=== PATIENT | female | born 1975 | race Hispanic/Latino ===

== ENCOUNTER → 2021-06-03 | Outpatient (CLI) | payer OTHER | END | disposition home or self-care (01) | LOC: RAH 14:34 | PROVIDERS: ATTEND Internal Medicine | DX: E04.2 Nontoxic multinodular goiter (principal) | CPT/HCPCS: 76536 ==

== ENCOUNTER 2021-09-07 17:29 | Emergency (ER) | payer OTHER ==
[~2021-09-07] VITALS: Ht 165.1 cm; Wt 106.6 kg
[2021-09-07] MEDS ORDERED: ONDANSETRON 4MG INJ IVP ONE (18:00)
[2021-09-07] MEDS ORDERED: 0.9%NACL 1000ML 1,000 ML IV ONE (18:00)
[2021-09-07 18:28] LABS: CREATININE 0.9 mg/dL (0.5-1.5); POTASSIUM 3.4 mmol/L (3.5-5.1)
[2021-09-07 18:33] LABS: ALBUMIN 3.9 g/dL (3.5-5.0); BILIRUBIN,TOTAL 0.4 mg/dL (0.2-1.0); TOTAL PROTEIN, SERUM 8.2 g/dL (6.0-8.3)
[2021-09-07 18:35] LABS: BASOPHILS % (AUTO) 0.4 % (0.0-5.0); EOSINOPHILS % (AUTO) 0.5 % (0.0-8.0); HEMATOCRIT 40.9 % (36-48); LYMPHOCYTES % (AUTO) 9.3 % (21.0-51.0); MEAN CORPUSCULAR HEMOGLOBIN 27.9 pg (27.0-33.0); MEAN CORPUSCULAR HGB CONC 32.5 g/dL (32.0-36.0); MEAN CORPUSCULAR VOLUME 85.9 fL (79-99); MONOCYTES % (AUTO) 3.8 % (3.0-13.0); NEUTROPHILS % (AUTO) 85.6 % (40.0-77.0); PLATELET COUNT (AUTO) 308 K/uL (130-400); RED BLOOD CELL COUNT(AUTO) 4.76 MIL/uL (4.00-5.50); RED CELL DISTRIBUTION WIDTH 13.7 % (11.0-15.5)
[2021-09-07] MEDS ORDERED: METOCLOPRAMIDE 10 MG/2 ML VIAL IVP ONE (19:00)
[2021-09-07] MEDS ORDERED: DiphenhydrAMINE HCL 50 MG/ML VIAL IV ONE (19:00)
[2021-09-07] MEDS ORDERED: ACETAMINOPHEN 500 MG TABLET PO ONE (19:00)
[2021-09-07 19:14] LABS: APPEARANCE,URINE Clear (CLEAR); BILIRUBIN,URINE Negative (NEGATIVE); COLOR,URINE Yellow (YELLOW); GLUCOSE, URINE (UA) Negative (NEGATIVE); KETONES,URINE Negative (NEGATIVE); LEUKOCYTE ESTERASE ,URINE Trace (NEGATIVE); NITRATE,URINE Negative (NEGATIVE); OCCULT BLOOD,URINE Large (NEGATIVE); PROTEIN,URINE Negative (NEGATIVE); UROBILINOGEN,URINE 0.2 mg/dL (0.2-1.0)
[2021-09-07 19:19] LABS: HCG,QUAL RESULT NEGATIVE (NEGATIVE)
[2021-09-07 19:21] LABS: BACTERIA,URINE Rare /HPF (None Seen); WBC,URINE 0-1 /HPF (0-1)
[2021-09-07 19:22] LABS: SQUAMOUS EPITHELIAL CELL,UR Rare /HPF (0-2)
[2021-09-07] MEDS ORDERED: MECL-226 PO (20:10)
[2021-09-07] MEDS ORDERED: ACET-3194 PO (20:10)
[2021-09-07] MEDS ORDERED: PSEU120T62 PO (20:10)
[2021-09-07] MEDS ORDERED: AZIT250T9 PO (20:10)
[2021-09-07 20:15] VITALS: BP 159/76
[2021-09-07] MEDS ORDERED: ACETAMINOPHEN 500 MG TABLET ONE (20:26)
[2021-09-07] MEDS ORDERED: METOCLOPRAMIDE 10 MG/2 ML VIAL ONE (20:26)
[2021-09-07] MEDS ORDERED: DiphenhydrAMINE HCL 50 MG/ML VIAL ONE (20:26)
== END 2021-09-07 20:47 | disposition home or self-care (01) ==
LOC: EDH 17:29
DX: J32.9 Chronic sinusitis, unspecified (principal); R42 Dizziness and giddiness; I10 Essential (primary) hypertension; Z79.899 Other long term (current) drug therapy; Z90.49 Acquired absence of other specified parts of digestive tract
CPT/HCPCS: 36415; 70450; 71045; 80053; 81001; 81025; 82550; 84484; 85025; 93005; 96361; 96374; 96375; 99285; J1200; J2405; J2765; J7030

== ENCOUNTER 2022-01-13 21:52 | Emergency (ER) | payer OTHER ==
[~2022-01-13] VITALS: Ht 165.1 cm; Wt 104.3 kg
[~2022-01-13 21:52] MED LIST: ACET-3194 PO; AZIT250T9 PO; MECL-226 PO; PSEU120T62 PO
[2022-01-13 22:21] LABS: BASOPHILS % (AUTO) 0.5 % (0.0-5.0); HEMATOCRIT 39.6 % (36-48); LYMPHOCYTES % (AUTO) 23.5 % (21.0-51.0); MEAN CORPUSCULAR HEMOGLOBIN 28.4 pg (27.0-33.0); MEAN CORPUSCULAR HGB CONC 32.6 g/dL (32.0-36.0); MEAN CORPUSCULAR VOLUME 87.2 fL (79-99); MONOCYTES % (AUTO) 5.4 % (3.0-13.0); NEUTROPHILS % (AUTO) 67.3 % (40.0-77.0); PLATELET COUNT (AUTO) 326 K/uL (130-400); RED BLOOD CELL COUNT(AUTO) 4.54 MIL/uL (4.00-5.50); RED CELL DISTRIBUTION WIDTH 13.2 % (11.0-15.5); WHITE BLOOD COUNT (AUTO) 11.2 K/uL (4.8-10.8)
[2022-01-13 22:25] LABS: APPEARANCE,URINE Cloudy (CLEAR); BILIRUBIN,URINE Negative (NEGATIVE); COLOR,URINE Yellow (YELLOW); GLUCOSE, URINE (UA) Negative (NEGATIVE); KETONES,URINE Negative (NEGATIVE); LEUKOCYTE ESTERASE ,URINE Moderate (NEGATIVE); NITRATE,URINE Negative (NEGATIVE); OCCULT BLOOD,URINE Nonhemolyzed Trace (NEGATIVE); PH,URINE 6.5 (5.0-8.0); PROTEIN,URINE Negative (NEGATIVE); UROBILINOGEN,URINE 0.2 mg/dL (0.2-1.0)
[2022-01-13 22:33] LABS: CREATININE 0.9 mg/dL (0.5-1.5)
[2022-01-13 22:38] LABS: BILIRUBIN,TOTAL 0.2 mg/dL (0.2-1.0); TOTAL PROTEIN, SERUM 8.2 g/dL (6.0-8.3)
[2022-01-13 22:42] LABS: BACTERIA,URINE Few /HPF (None Seen); MUCUS,URINE Rare LPF (None Seen); SQUAMOUS EPITHELIAL CELL,UR Few /HPF (0-2)
[2022-01-13] MEDS ORDERED: MACR100 PO (23:13)
[2022-01-13 23:24] VITALS: BP 139/90
== END 2022-01-13 23:34 | disposition home or self-care (01) ==
LOC: EDH 21:52
DX: N39.0 Urinary tract infection, site not specified (principal); I49.3 Ventricular premature depolarization; K21.9 Gastro-esophageal reflux disease without esophagitis; I10 Essential (primary) hypertension; Z90.49 Acquired absence of other specified parts of digestive tract; Z98.890 Other specified postprocedural states; Z79.899 Other long term (current) drug therapy
CPT/HCPCS: 36415; 71045; 80053; 81001; 83690; 84484; 85025; 87088; 93005

== ENCOUNTER 2024-11-19 20:26 | Emergency (ER) | payer BC, OTHER ==
[~2024-11-19] VITALS: Ht 165.1 cm; Wt 105.7 kg
[~2024-11-19 20:26] MED LIST changes: +MACR100 PO
[2024-11-19 21:21] LABS: BASOPHILS # (AUTO) 0.04 K/uL (0.00-0.20); BASOPHILS % (AUTO) 0.3 % (0.0-5.0); EOSINOPHILS # (AUTO) 0.42 K/uL (0.00-0.70); EOSINOPHILS % (AUTO) 3.6 % (0.0-8.0); HEMATOCRIT 38.2 % (36-48); IMMATURE GRANULOCYTE ABSOLUTE 0.04 K/uL (0-1); LYMPHOCYTES # (AUTO) 2.5 K/uL (1.0-4.8); LYMPHOCYTES % (AUTO) 21.7 % (21.0-51.0); MEAN CORPUSCULAR HEMOGLOBIN 28.4 pg (27.0-33.0); MEAN CORPUSCULAR HGB CONC 32.5 g/dL (32.0-36.0); MEAN CORPUSCULAR VOLUME 87.4 fL (79-99); MONOCYTES # (AUTO) 0.9 K/uL (0.1-1.0); MONOCYTES % (AUTO) 7.3 % (3.0-13.0); NEUTROPHILS # (AUTO) 7.8 K/uL (1.8-7.7); NEUTROPHILS % (AUTO) 66.8 % (40.0-77.0); PLATELET COUNT (AUTO) 305 K/uL (130-400); RED BLOOD CELL COUNT(AUTO) 4.37 MIL/uL (4.00-5.50); RED CELL DISTRIBUTION WIDTH 13.7 % (11.0-15.5); WHITE BLOOD COUNT (AUTO) 11.7 K/uL (4.8-10.8)
[2024-11-19 21:35] LABS: POTASSIUM 3.3 mmol/L (3.5-5.1)
[2024-11-19] MEDS: ketOROlac 15MG/ML VIAL (15MG/ML) IV ONE (21:38)
[2024-11-19] MEDS: 0.9%NACL 1000ML 1,000 ML IV ONE (21:38)
--- NOTE | 2024-11-19 21:54 | ERN ---
General Chief Complaint: Headache Stated Complaint: HEADACHE, NAUSEA, DIZZY Time Seen by MD: 20:28 History of Present Illness Initial Comments 49 year old female who presents for headache and dizziness for the last couple of months. She reports on and off episodes where she feels a tingling and painful sensation mostly in the left side of the head sometimes bilaterally. She feels dizzy at times. No focal neurologic deficits. No vision changes, no neck stiffness, no fevers or infectious symptoms. Allergies: Coded Allergies: No Known Allergies (Unverified Allergy, Unknown, 09/07/21) Home Meds Active Scripts Butalb/Acetaminophen/Caffeine (Fioricet) 50 Mg-325 Mg-40 Mg Tab, 1 TAB PO QID PRN for headache for 10 Days, #30 TAB Prov:MEMO CATES DO 11/20/24 Nitrofurantoin/Nitrofuran Mac (Macrobid) 100 Mg Cap, 1 CAP PO BID for 5 Days, #10 CAP 0 Refills Prov:JAKY FISH MD 01/13/22 Meclizine HCl (Meclizine HCl) 12.5 Mg Tablet, 25 MG PO BID for 5 Days, #10 TAB Prov:DOROTHY SMITH 09/07/21 Acetaminophen (Acetaminophen) 650 Mg Tablet.er, 650 MG PO TID for 5 Days, #15 TAB Prov:DOROTHY SMITH 09/07/21 Azithromycin (Azithromycin) 250 Mg Tablet, 250 MG PO DAILY for z-pack for 5 Days, #6 TAB Prov:DOROTHY SMITH 09/07/21 Pseudoephedrine HCl (Sudafed 12 Hour) 120 Mg Tablet.er, 120 MG PO BID for 5 Days, #10 TAB Prov:DOROTHY SMITH 09/07/21 Past Medical History Past Medical History: Hypertension Past Surgical History: Cholecystectomy, Surgical History Other: BREAST CYST Family History Family History: Negative Social History Social History: ETOH, Lives with family Female( History) History: Not Applicable LMP: Oct 17, 2024 ROS Dictation CONSTITUTIONAL: No chills, no fever, no weakness, no diaphoresis, no malaise. HEAD/FACE: No signs of trauma. EENT: No eye pain, no blurred vision, no tearing, no double vision, no ear pain, no ear discharge, no nose pain, no nasal congestion, no throat pain, no throat swelling, no mouth pain. RESPIRATORY: No cough, no orthopnea, no SOB, no stridor, no wheezing. CARDIOVASCULAR: No chest pain, no edema, no palpitations, no syncope. GASTROINTESTINAL/ABDOMINAL: No abdominal pain, no constipation, no diarrhea, no nausea, no vomiting. GENITOURINARY: No abnormal discharge, no dysuria, no frequent urination, no hematuria. No complaints of pain in the genitals. MUSCULOSKELETAL: No back pain, no gout, no joint pain, no joint swelling, no muscle pain, no muscle stiffness, no neck pain. INTEGUMENTARY: No change in color, no change in hair/nails, no dryness, no lesion, no lumps, no rash. NEUROLOGICAL/PSYCH: Headache dizziness HEMATOLOGIC/LYMPHATIC: Not anemic, no history of blood clots, no apparent bleeding, no bruising, glands not swollen. All Systems Negative, Except as Noted. Physical Exam Physical Exam Dictation VITAL SIGNS: Reviewed. GENERAL APPEARANCE: Alert, oriented x3, no acute distress, obese. HEAD AND FACE: Non-traumatic. EYES: PERRL, pink conjunctivas, eyelid no trauma, anterior chamber clear. EARS: Pinnas intact and no signs of trauma or erythema. Ear canals clear and no discharge. TMs no erythema. NOSE: No discharge, no bleeding. OROPHARYNX: Mouth normal, teeth no caries, tongue pink. Pharynx clear, no erythema. Tonsils no exudates, no abscesses noted. Mucous membrane moist. NECK: Supple, non-tender, no thyromegaly, no masses, no JVD, no bruits. BREAST: Deferred. CHEST: No tenderness, no crepitus, no paradoxical movement, no retractions. LUNGS: Clear, well-ventilated, symmetric, no rales, no wheezing, no rhonchi, no stridor, good breath sounds bilaterally. HEART: Regular rate, regular rhythm, no murmur, no gallops. VASCULAR: No peripheral edema. ABDOMEN: Soft, positive bowel sounds, nondistended, no guarding, nontender, no rebound, no masses no hepatomegaly, no splenomegaly, no Valenzuela's sign, no hernias. RECTAL: Deferred. GENITAL: Deferred. NEUROLOGICAL: Normal speech, gross motor function intact, gross sensory function intact. MUSCULOSKELETAL: Neck nontender, full range of motion, back nontender, full range of motion. EXTREMITIES: Nontender, full range of motion. SKIN: Color pink, dry, no turgor, no rash, no lacerations, no abrasions, no contusions. LYMPHATICS: Deferred. Results Laboratory and Microbiology Lab and Micro Result Laboratory Tests Test 11/19/24 21:16 White Blood Count 11.7 K/uL (4.8-10.8) H Red Blood Count 4.37 MIL/uL (4.00-5.50) Hemoglobin 12.4 g/dL (12.0-16.0) Hematocrit 38.2 % (36-48) Mean Corpuscular Volume 87.4 fL (79-99) Mean Corpuscular Hemoglobin 28.4 pg (27.0-33.0) Mean Corpuscular Hemoglobin Concent 32.5 g/dL (32.0-36.0) Red Cell Distribution Width 13.7 % (11.0-15.5) Platelet Count 305 K/uL (130-400) Mean Platelet Volume 9.5 fL (7.5-10.5) Immature Granulocyte % (Auto) 0.3 % (0-1) Neutrophils (%) (Auto) 66.8 % (40.0-77.0) Lymphocytes (%) (Auto) 21.7 % (21.0-51.0) Monocytes (%) (Auto) 7.3 % (3.0-13.0) Eosinophils (%) (Auto) 3.6 % (0.0-8.0) Basophils (%) (Auto) 0.3 % (0.0-5.0) Neutrophils # (Auto) 7.8 K/uL (1.8-7.7) H Lymphocytes # (Auto) 2.5 K/uL (1.0-4.8) Monocytes # (Auto) 0.9 K/uL (0.1-1.0) Eosinophils # (Auto) 0.42 K/uL (0.00-0.70) Basophils # (Auto) 0.04 K/uL (0.00-0.20) Absolute Immature Granulocyte (auto 0.04 K/uL (0-1) Nucleated Red Blood Cells 0.0 % (0.0-0.19) Sodium Level 138 mmol/L (136-145) Potassium Level 3.3 mmol/L (3.5-5.1) L Chloride Level 99 mmol/L (101-111) L Carbon Dioxide Level 32 mmol/L (21-32) Blood Urea Nitrogen 11 mg/dL (7-18) Creatinine 1.0 mg/dL (0.5-1.0) Glomerular Filtration Rate Calc 69 mL/min (>90) Random Glucose 111 mg/dL (70-105) H Total Calcium 9.6 mg/dL (8.5-10.1) Total Creatine Kinase 94 U/L (21-232) Troponin I High Sensitivity 5.3 ng/L (4-50) Serum Test, Qualitative NEGATIVE (NEGATIVE) MDM CC: headache, L sided head tingling, dizziness for months. Historian: patient Limitations by social determinants of health: None Comorbidities: Cholecystectomy, , hypertension Differential diagnoses: Stroke, brain tumor brain bleed, peripheral neuralgia, migraine headache, tension headaches, eye problem, other. Vital signs: Stable, remained stable in the ER Clinical exam: NIHSS of 0, cranial nerves intact and ENT exam normal, [id number] normal. No neurologic deficits noted. Lab work (independently ordered and interpreted by me): Normal CBC, normal chemistry, normal CK, hCG is negative, troponin normal. CT head (independently interpreted by me): No acute bleed, or abnormalities. Patient received a headache cocktail in the ER including normal saline IV, IV Toradol, IV Compazine, and IV Benadryl. On re-evaluation she reports that her pain has completely subsided. I do not see any signs of stroke, brain bleed, or any other life-threatening pathology at this time. She was good follow up as an outpatient. She possibly has been having complex migraines versus some sort of peripheral neuralgia. We will give a prescription for oral Fioricet to use as needed and recommend PCP follow up. She was already pending an evaluation by a neurologist as an outpatient and an ENT specialist. REASON: headache, nausea x 2 weeks ORDERING PHYSICIAN: MEMO CATES DO PROCEDURE: HEAD WO - CT HEAD/BRAIN W/O CONTRAST CT HEAD/BRAIN W/O CONTRAST HISTORY: Headaches COMPARISON: None TECHNIQUE: Multiple sequential axial images of the head were obtained from the base of the skull through vertex. Patient was not given contrast through intravenous route. FINDINGS: The ventricles and extraventricular CSF spaces are nondilated for patient's age. There is no midline shift, mass effect or herniation. No acute intracranial bleed is seen. Visualized portion of the paranasal sinuses are grossly within normal limits. IMPRESSION: 1. No acute intracranial bleed is seen. ED Course Orders Procedure Category Date Status Time Cardiac Panel LAB 11/19/24 Complete 21:03 Cbc With Differential LAB 11/19/24 Complete 21:03 Basic Metabolic Panel LAB 11/19/24 Complete 21:03 Ct Head/Brain W/O CT 11/19/24 Resulted Contrast 21:03 0.9%Nacl 1000ml (Ns PHA 11/19/24 Complete 1000ml) 21:30 Ketorolac PHA 11/19/24 Complete Tromethamine 15mg/Ml 21:30 Testing, LAB 11/19/24 Complete Serum Hcg 21:33 Prochlorperazine PHA 11/19/24 Complete 10mg/2ml Inj 22:30 Diphenhydramine Hcl PHA 11/19/24 Complete (Benadryl Inj) 22:30 Current Medications Medications (Trade) Dose Ordered Sig/Jose L Route PRN Reason Start Time Stop Time Status Last Admin Dose Admin Diphenhydramine HCl (BENAdryl INJ) 25 mg ONCE ONCE IV 11/19/24 22:30 11/19/24 22:31 DC 11/19/24 22:34 Ketorolac Tromethamine (toRADol) 15 mg ONCE ONCE IV 11/19/24 21:30 11/19/24 21:31 DC 11/19/24 21:38 Prochlorperazine Edisylate (Compazine 10mg/ 2ml Inj) 5 mg ONCE ONCE IV 11/19/24 22:30 11/19/24 22:31 DC 11/19/24 22:34 Sodium Chloride 1,000 ml @ 0 mls/hr ONCE ONCE IV 11/19/24 21:30 11/19/24 21:31 DC 11/19/24 21:38 Vital Signs Date Time Temp Pulse Resp B/P (MAP) Pulse Ox O2 Delivery O2 Flow Rate FiO2 11/19/24 23:41 98.4 98 18 124/51 97 Room Air* 0 21 11/19/24 20:52 99.1 71 20 141/88 97 Room Air DX & DISP Disposition: Discharge Departure Impression: Primary Impression: Dizziness Additional Impression: Headache Condition: Stable Scripts Butalb/Acetaminophen/Caffeine (Fioricet) 50 Mg-325 Mg-40 Mg Tab 1 TAB PO QID PRN for headache for 10 Days, #30 TAB Prov: MEMO CATES DO 11/20/24 Additional Instructions: There are no dangerous findings on your workup here today. There are no obvious sources of your symptoms. Your vital signs have been stable here in the ER. Your lab work (CBC, metabolic panel, troponin, CK, test) is normal. The CT scan of your head without contrast shows no acute abnormalities. As we discussed, you may have a peripheral neuralgia or migraine type headache. As we discussed, continue your outpatient workup with a neurologist and ENT specialist. I have prescribed Fioricet, which is a migraine medication. Try using this medi cation for headaches. When you do have a headache or discomfort, take two tabs, drinking lots of water, and attempts to take a nap. For many people this will help with symptoms. Please return to the emergency department if you have any concerning symptoms. Otherwise, follow up as an outpatient. Referrals: JESÚS LAW MD (PCP) MEMO CATES DO Nov 19, 2024 21:53
--- NOTE | 2024-11-19 22:19 | HMCIMG ---
CT HEAD/BRAIN W/O CONTRAST HISTORY: Headaches COMPARISON: None TECHNIQUE: Multiple sequential axial images of the head were obtained from the base of the skull through vertex. Patient was not given contrast through intravenous route. FINDINGS: The ventricles and extraventricular CSF spaces are nondilated for patient's age. There is no midline shift, mass effect or herniation. No acute intracranial bleed is seen. Visualized portion of the paranasal sinuses are grossly within normal limits. IMPRESSION: 1. No acute intracranial bleed is seen. CT was performed with one or more following dose reduction techniques: automated exposure control, adjustment of the mA and kv according to patient's size, or use of a iterative reconstruction technique.
[2024-11-19] MEDS: DiphenhydrAMINE HCL 50 MG/ML VIAL IV ONE (22:34)
[2024-11-19] MEDS: PROCHLORPERAZINE 10MG/2ML INJ IV ONE (22:34)
[2024-11-19 23:41] VITALS: BP 124/51; PULSE 98; RESP 18; TEMP 98.4; O2SAT 97
[2024-11-20] MEDS ORDERED: FIORIT PO (00:07)
== END 2024-11-20 00:13 | disposition home or self-care (01) ==
LOC: EDH 20:26
DX: R42 Dizziness and giddiness (principal); R51.9 Headache, unspecified; I10 Essential (primary) hypertension; Z90.49 Acquired absence of other specified parts of digestive tract; Z79.899 Other long term (current) drug therapy; Z98.890 Other specified postprocedural states
CPT/HCPCS: 99284; 96374; 70450; 96375; 82550; 84484; 80048; 84703; 85025; 36415; J1885; J1200; J7030; J0780